=== PATIENT | male | born 1955 | race Caucasian/White ===

== ENCOUNTER 2023-03-02 05:34 | Observation (INO) | payer MEDICARE ==
[2023-02-27 16:22] LABS: BASOPHILS % 0.3 % (0.0-1.0); EOSINOPHILS # (AUTO) 0.2 (0.0-0.4); EOSINOPHILS % 1.6 % (0.0-6.0); HEMATOCRIT 46.4 % (38.2-49.6); HEMOGLOBIN 15.7 g/dL (14.0-18.0); LYMPHOCYTES # (AUTO) 2.6 (1.0-3.2); LYMPHOCYTES % 26.9 % (18.0-39.1); MEAN CORPUSCULAR HEMOGLOBIN 31.3 pg (28-32); MEAN CORPUSCULAR HGB CONC 33.8 g/dL (31-35); MEAN CORPUSCULAR VOLUME 92.4 fL (81-99); MONOCYTES # (AUTO) 0.8 (0.2-0.8); MONOCYTES % 8.6 % (4.4-11.3); NEUTROPHILS # (AUTO) 6.1 (2.1-6.9); NEUTROPHILS % 62.3 % (38.7-80.0); PLATELET COUNT 162 x10e3/uL (140-360); RED BLOOD COUNT 5.02 x10e6/uL (4.3-5.7); RED CELL DISTRIBUTION WIDTH 13.4 % (11.7-14.4)
[2023-02-27 16:33] LABS: INR 0.97; PROTHROMBIN TIME 13.4 seconds (11.9-14.5)
[2023-02-27 16:38] LABS: ANION GAP 12.6 mmol/L (8-16); CALCIUM 9.1 mg/dL (8.4-10.2); CREATININE, SERUM 0.98 mg/dL (0.72-1.25); POTASSIUM 4.6 mmol/L (3.5-5.1)
[~2023-03-02] VITALS: Ht 180.3 cm; Wt 120.7 kg
[~2023-03-02 05:34] MED LIST: HYDROCODON-ACE1 EA12; LYRICA75 MG PO
[2023-03-02] MEDS ORDERED: SUGAMMADEX SODIUM 200 MG/2 ML VIAL IV ONE (06:28)
[2023-03-02] MEDS ORDERED: ACETAMINOPHEN 1000 MG/100 ML 100 ML IV ONE (06:28)
[2023-03-02] MEDS ORDERED: Vancomycin IV 1 GM VIAL ONE (07:13)
[2023-03-02] MEDS ORDERED: THROMBIN FOR SOLN 5,000 UNIT VIAL ONE (07:13)
[2023-03-02] MEDS ORDERED: CEFAZOLIN SODIUM 2 GM ONE (08:30)
[2023-03-02] MEDS ORDERED: LACTATED RINGER'S 1,000 ML ONE (08:30)
[2023-03-02] MEDS ORDERED: MORPHINE SULFATE 5 MG/ML VIAL IM PRN (12:30)
[2023-03-02] MEDS ORDERED: ZOLPIDEM TARTRATE 5 MG TAB PO PRN ×2 (12:30)
[2023-03-02] MEDS ORDERED: OXYCODONE/ACETAMINOPHEN 5-325 1 EACH TABLET PO PRN (12:30)
[2023-03-02] MEDS ORDERED: HYDROMORPHONE 2MG/ML 2 MG/ML ML IV PRN ×2 (12:30)
[2023-03-02] MEDS ORDERED: PROMETHAZINE HCL (IM) 25 MG/ML VIAL IM PRN ×2 (12:30)
[2023-03-02] MEDS ORDERED: LACTATED RINGER'S 1,000 ML IV SCH (12:30)
[2023-03-02] MEDS ORDERED: ACETAMINOPHEN 325 MG TAB PO PRN ×2 (12:30)
[2023-03-02] MEDS: LACTATED RINGER'S 1,000 ML IV SCH ×2 (12:30→20:14)
[2023-03-02] MEDS ORDERED: ONDANSETRON HCL INJ 2MG/ML 2ML 2 MG/ML VIAL IV PRN ×2 (12:30)
[2023-03-02] MEDS ORDERED: Morphine 10mg syringe 10 MG/ML INJ IM PRN (12:30)
[2023-03-02] MEDS ORDERED: CARISOPRODOL 350 MG TAB PO PRN (12:30)
[2023-03-02] MEDS ORDERED: MAGNESIUM/ALUMINUM/SIMETHICONE 30 ML UDC PO PRN ×2 (12:30)
[2023-03-02] MEDS ORDERED: HYDROCODON-ACE1 EA12 PO (12:34)
[2023-03-02] MEDS ORDERED: FENTANYL CITRATE/PF 100MCG/2 ML INJ ONE (12:36)
[2023-03-02] MEDS: FENTANYL CITRATE/PF 100MCG/2 ML INJ ONE ×4 (13:10→13:36)
[2023-03-02] MEDS ORDERED: SEVOFLURANE INHAL SOLN 250 ML PEN BTL ONE (13:30)
[2023-03-02] MEDS ORDERED: ONDANSETRON HCL INJ 2MG/ML 2ML 2 MG/ML VIAL ONE (13:30)
[2023-03-02] MEDS ORDERED: KETOROLAC TROMETHAMINE 30 MG/ML VIAL ONE (13:30)
[2023-03-02] MEDS ORDERED: ROCURONIUM BROMIDE 10 MG/ML 5ML VIAL IV ONE (13:30)
[2023-03-02] MEDS ORDERED: PROPOFOL IV EMULSION 10 MG/ML 20 ML VIAL ONE (13:30)
[2023-03-02] MEDS ORDERED: DEXAMETHASONE SOD PHOS INJ 4 MG/ML SDV ONE (13:30)
[2023-03-02] MEDS ORDERED: POVIDONE IODINE 0.05% 0.05 % ML PO ONE (13:30)
[2023-03-02] MEDS ORDERED: LIDOCAINE HCL 2% LOCAL INJ 5 ML SDV VIAL INJ ONE (13:30)
[2023-03-02 14:00] VITALS: BP 137/80
[2023-03-02 14:34] VITALS: BP 137/80
[2023-03-02 14:45] VITALS: BP 137/80
[2023-03-02] MEDS: NICOTINE 21 MG/EA PATCH TOP SCH (15:51)
[2023-03-02] MEDS: CARISOPRODOL 350 MG TAB PO PRN (15:52)
[2023-03-02] MEDS: OXYCODONE/ACETAMINOPHEN 5-325 1 EACH TABLET PO PRN ×2 (15:53→20:14)
[2023-03-02] MEDS: PREGABALIN 75 MG CAP PO SCH (16:39)
[2023-03-02 20:00] VITALS: BP 138/67
[2023-03-03] VITALS: BP 139/75
[2023-03-03] MEDS: LACTATED RINGER'S 1,000 ML IV SCH (01:22)
[2023-03-03] MEDS: OXYCODONE/ACETAMINOPHEN 5-325 1 EACH TABLET PO PRN ×2 (04:02→10:13)
[2023-03-03] MEDS: CARISOPRODOL 350 MG TAB PO PRN ×2 (04:13→10:13)
[2023-03-03 08:13] VITALS: BP 120/66
[2023-03-03 08:14] VITALS: BP 120/66
[2023-03-03] MEDS: PREGABALIN 75 MG CAP PO SCH (09:00)
[2023-03-03] MEDS: NICOTINE 21 MG/EA PATCH TOP SCH (10:14)
== END 2023-03-03 10:53 | disposition home or self-care (01) ==
LOC: OR 05:34 → EDBD 08:30 → PACU V 12:32 → MED/SURG 14:00
PROVIDERS: ADMIT Neurological Surgery; ATTEND Neurological Surgery
DX: M50.01 Cervical disc disorder with myelopathy, high cervical region (principal); Z71.82 Exercise counseling; Z71.3 Dietary counseling and surveillance; F17.210 Nicotine dependence, cigarettes, uncomplicated; Z01.810 Encounter for preprocedural cardiovascular examination; Z01.812 Encounter for preprocedural laboratory examination; Z01.818 Encounter for other preprocedural examination; Z20.822 Contact with and (suspected) exposure to COVID-19; Z79.899 Other long term (current) drug therapy; Z68.37 Body mass index [BMI] 37.0-37.9, adult
CPT/HCPCS: 0223U; 20931; 22551; 22845; 36415; 71046; 72040; 76000; 80048; 85025; 85610; 85730; 86850; 86900; 88304; 88311; 93005; C1713 ×3; G0378 ×2; J0131; J0690 ×2; J1100; J1885; J2001; J2405; J2704; J3010; J3370; J7121